=== PATIENT | female | born 1950 | race Caucasian/White ===

== ENCOUNTER → 2017-05-03 | Outpatient (CLI) | payer MEDICARE ==
--- NOTE | 2017-05-03 17:36 | PCVCIMAG ---
APPROVED REPORT Study performed: 05/03/2017 14:01:01 EXAM: Comprehensive 2D, Doppler, and color-flow Echocardiogram Patient Location: Echo lab Status: routine BSA: 1.87 HR: 63 bpmBP: 96/56 mmHg Rhythm: NSR Other Information Study Quality: Adequate Risk Factors: Cardiac Risk Factors: diastolic dysfunction,copd,peripheral edema Indications COPD Peripheral Edema Chest Pain diastolic chf 2D Dimensions LVEF(%): 67.60 (>50%) IVSd: 6.99 (7-11mm)LVOT Diam: 18.52 (18-24mm) LVDd: 42.91 mm PWd: 7.16 (7-11mm)Ascending Ao: 30.18 (22-36mm) LVDs: 26.91 (25-40mm) Left Atrium: 34.96 (27-40mm) Aortic Root: 23.00 mm LV Single Plane 4CH: 66.01 % LV Single Plane 2CH: 70.41 %Deras's LVEF: 68.21 % Biplane EF: 69.0 % Volumes Left Atrial Volume (Systole) Single Plane 4CH: 79.13 mLSingle Plane 2CH: 53.30 mL Biplane LA Volume: 70.00 mLLA ESV Index: 37.00 mL/m2 Aortic Valve AoV Peak Durga.: 1.03 m/s AO Peak Gr.: 4.25 mmHgLVOT Max P.81 mmHg LVOT Max V: 0.84 m/s NOEL Vmax: 2.19 cm2 Mitral Valve E/A Ratio: 1.0 MV Decel. Time: 199.75 ms MV E Max Durga.: 1.28 m/s MV A Durga.: 1.22 m/s MV VTI: 402.86 mm IVRT: 79.58 ms TDI E/Lateral E': 25.60E/Medial E': 25.60 Medial E' Durga.: 0.05 m/s Lateral E' Durga.: 0.05 m/s Pulmonary Valve PV Peak Durga.: 0.71 m/sPV Peak Gr.: 2.01 mmHg Pulmonary Vein P Vein S: 0.48 m/sP Vein A: 0.28 m/s P Vein D: 0.55 m/sP Vein A Dur.: 86.5 msec P Vein S/D Ratio: 0.87 Tricuspid Valve TR Peak Durga.: 2.47 m/s TR Peak Gr.: 24.36 mmHg TV Vmax: 0.62 m/sPA Pressure: 31.00 mmHg Left Ventricle The left ventricle is normal size. There is normal LV segmental wall motion. There is normal left ventricular wall thickness. Left ventricular systolic function is normal. The left ventricular ejection fraction is within the normal range. LVEF is 65-70%. Grade I - abnormal relaxation pattern. Right Ventricle The right ventricle is normal size. The right ventricular systolic function is normal. Atria Left atrium is mildly dilated. The right atrium size is normal. Aortic Valve The aortic valve is normal in structure. No aortic regurgitation is present. There is no aortic valvular stenosis. Mitral Valve The mitral valve chordae are thickened and/or calcified.Mild reductino in movement withoyt stenosis. Moderate mitral regurgitation. No evidence of mitral valve stenosis. Tricuspid Valve The tricuspid valve is normal in structure. Mild tricuspid regurgitation with a PA pressure of 31 mmHg. Pulmonic Valve The pulmonary valve is normal in structure. There is no pulmonic valvular regurgitation. Great Vessels The aortic root is normal in size. IVC is normal in size and collapses with >50% inspiration Pericardium Trace pericardial effusion. <Conclusion> The left ventricle is normal size. LVEF is 65-70%. Grade I - abnormal relaxation pattern. The right ventricle is normal size. Left atrium is mildly dilated. The aortic valve is normal in structure. Moderate mitral regurgitation. Mild tricuspid regurgitation with a PA pressure of 31 mmHg. Trace pericardial effusion.
== END | disposition home or self-care (01) ==
LOC: PCVCIMAG 14:16
PROVIDERS: ATTEND Internal Medicine Cardiovascular Disease
DX: I08.1 Rheumatic disorders of both mitral and tricuspid valves (principal); I87.2 Venous insufficiency (chronic) (peripheral); E78.1 Pure hyperglyceridemia; K21.9 Gastro-esophageal reflux disease without esophagitis; J44.9 Chronic obstructive pulmonary disease, unspecified; I31.3 Pericardial effusion (noninflammatory); I50.31 Acute diastolic (congestive) heart failure; N18.9 Chronic kidney disease, unspecified; M85.80 Other specified disorders of bone density and structure, unspecified site; Z86.73 Personal history of transient ischemic attack (TIA), and cerebral infarction without residual deficits; Z90.49 Acquired absence of other specified parts of digestive tract; Z90.710 Acquired absence of both cervix and uterus; Z79.82 Long term (current) use of aspirin; Z87.891 Personal history of nicotine dependence; Z88.8 Allergy status to other drugs, medicaments and biological substances
CPT/HCPCS: 80061; 93306; G0463

== ENCOUNTER → 2018-01-22 | Outpatient (CLI) | payer MEDICARE | END | disposition home or self-care (01) | LOC: PCVCCLINIC 13:25 | DX: I34.0 Nonrheumatic mitral (valve) insufficiency (principal); E78.00 Pure hypercholesterolemia, unspecified; I87.2 Venous insufficiency (chronic) (peripheral); K21.9 Gastro-esophageal reflux disease without esophagitis; J44.9 Chronic obstructive pulmonary disease, unspecified; N18.9 Chronic kidney disease, unspecified; G47.30 Sleep apnea, unspecified; Z87.891 Personal history of nicotine dependence; Z79.82 Long term (current) use of aspirin; Z79.899 Other long term (current) drug therapy | CPT/HCPCS: 93005; G0463 ==

== ENCOUNTER → 2018-11-06 | Outpatient (CLI) | payer MEDICARE | END | disposition home or self-care (01) | LOC: PCVCCLINIC 14:14 | PROVIDERS: ATTEND Internal Medicine Cardiovascular Disease | DX: I34.0 Nonrheumatic mitral (valve) insufficiency (principal); J44.9 Chronic obstructive pulmonary disease, unspecified; E78.00 Pure hypercholesterolemia, unspecified; I87.2 Venous insufficiency (chronic) (peripheral); I50.33 Acute on chronic diastolic (congestive) heart failure; R42 Dizziness and giddiness; R53.83 Other fatigue; I48.0 Paroxysmal atrial fibrillation; K21.9 Gastro-esophageal reflux disease without esophagitis; N18.9 Chronic kidney disease, unspecified; Z86.718 Personal history of other venous thrombosis and embolism; Z86.711 Personal history of pulmonary embolism; Z79.82 Long term (current) use of aspirin; Z87.891 Personal history of nicotine dependence | CPT/HCPCS: 36415; 80061; 93005; G0463 ==

== ENCOUNTER → 2018-11-13 | Outpatient (CLI) | payer MEDICARE ==
[~2018-11-13] MED LIST: DIAZEPAM 10 MG TABLET. ONE; IOHEXOL 350 MG/ML 100 ML VIAL. ONE; IV NORMAL SALINE 1000ML BAG 1,000 ML ONE; LIDOCAINE 1%/EPI 1:100,000 20 ML VIAL. ONE; MIDAZOLAM HCL/PF 2 MG/2 ML VIAL. ONE; fentaNYL PF VIAL 100 MCG/2 ML VIAL ONE
--- NOTE | 2018-11-18 13:52 | PCVCINTER ---
APPROVED REPORT Study performed: 11/13/2018 09:19:23 Patient Details Patient Status: Out-Patient Room #: 2 The patient is a 68 year-old Female Event Personnel Adolfo Potter MD, Kayce Lopez RT(R)(), Cedric Cordova RT(R), Dayron Wilson RN Risk Factors Dysplipidemia (Type: 1)Obesity, Cerebrovascular Disease, Chronic Lung DiseaseHypercholesterolemiaPhysical Activity, Last Creatanine 1.8Tobacco History (Former) Previous Procedures/Diagnoses Previous CHF, CHF, COPD, Arrhythmias - Supraventricular tachycardias->Persistent AF Procedure Narrative The patient was brought electively to the Cardiac Catheterization Laboratory and was prepped and draped in a sterile manner. The right femoral was infiltrated with 1% Lidocaine subcutaneous anesthesia. A Right Heart Catheterization was performed with a 7 Fr. [place] catheter and pressure were recorded. Cardiac outputs were obtained by the Thermal Dilution method. A 6F sheath was inserted into the right femoral artery. Coronary angiography was performed using coronary diagnostic catheters. The right coronary system was accessed and visualized with a JR4 catheter. The left coronary system was accessed and visualized with a JL4 catheter. The left ventricle was accessed and visualized with a Straight Pigtail catheter. Left ventriculogram was performed in VARGAS projection. Closure device was deployed with a 6 Fr Mynx. Hemostasis was obtained with manual pressure following sheath removal without any complications. The patient tolerated the procedure well and there were no complications associated with the procedure. There was no hematoma. Hemodynamics The right atrial mean pressure is 12 mmHg. The right ventricular pressure is 47/6 mmHg. The pulmonary artery pressure is 45/19 mmHg with a mean of 32 mmHg. The mean pulmonary capillary wedge pressure is 14 mmHg. The aortic pressure is 125/82 mmHg with a mean of 96 mmHg. The left ventricular pressure is 124/8 mmHg with a mean of 21 mmHg. The cardiac output and index were assessed using Thermalthermodilution. The cardiac output using thermo method is 5.16 L/min. The cardiac index using thermo method is 2.8 L/min/m2. Conclusion #1 successful right heart catheterization with cardiac output by thermodilution see above hemodynamics #2 hyperdynamic LV function with mildly severe mitral regurgitation EF 65-70% #3 left main large free of disease giving rise to LAD and circumflex #4 LAD with mild irregularity mid vessel lesion of 30% this extends around the apex mild proximal calcification is noted #5 circumflex OM nondominant with mild disease there is a large ramus intermedius branch which is also widely patent #6 a smaller but anatomically dominant right coronary artery with mild disease #7 bilateral selective renal artery injections revealed mild ostial disease Regulations plan: Patient stable. Would entertain diuresis and afterload reduction for mitral insufficiency. Indication for coronary intervention. Follow post catheter protocol.
== END | disposition home or self-care (01) ==
LOC: PCVCINTER 10:22
PROVIDERS: ATTEND Internal Medicine Cardiovascular Disease
DX: I25.10 Atherosclerotic heart disease of native coronary artery without angina pectoris (principal); I70.1 Atherosclerosis of renal artery; I48.1 Persistent atrial fibrillation; I47.1 Supraventricular tachycardia; I34.0 Nonrheumatic mitral (valve) insufficiency; J44.9 Chronic obstructive pulmonary disease, unspecified; F32.9 Major depressive disorder, single episode, unspecified; K21.9 Gastro-esophageal reflux disease without esophagitis; M85.80 Other specified disorders of bone density and structure, unspecified site; G25.81 Restless legs syndrome; Z86.73 Personal history of transient ischemic attack (TIA), and cerebral infarction without residual deficits; Z90.49 Acquired absence of other specified parts of digestive tract; Z90.710 Acquired absence of both cervix and uterus; Z98.890 Other specified postprocedural states; Z87.891 Personal history of nicotine dependence; Z72.89 Other problems related to lifestyle; Z88.1 Allergy status to other antibiotic agents; Z88.8 Allergy status to other drugs, medicaments and biological substances; Z91.048 Other nonmedicinal substance allergy status; E78.00 Pure hypercholesterolemia, unspecified; I13.0 Hypertensive heart and chronic kidney disease with heart failure and stage 1 through stage 4 chronic kidney disease, or unspecified chronic kidney disease; N18.9 Chronic kidney disease, unspecified; I50.30 Unspecified diastolic (congestive) heart failure; I87.2 Venous insufficiency (chronic) (peripheral); G43.109 Migraine with aura, not intractable, without status migrainosus; G47.30 Sleep apnea, unspecified; G62.9 Polyneuropathy, unspecified; Z79.899 Other long term (current) drug therapy; Z88.5 Allergy status to narcotic agent; Z79.84 Long term (current) use of oral hypoglycemic drugs
CPT/HCPCS: 36252; 93460; 99152; 99153; C1751; C1760; C1769; C1894; J1644; J2250; J3010; J3490; J7030; Q9967

== ENCOUNTER → 2018-12-16 | Outpatient (CLI) | payer MEDICARE | END | disposition home or self-care (01) | LOC: PCVCCLINIC 15:30 | PROVIDERS: ATTEND Internal Medicine Cardiovascular Disease | DX: I34.0 Nonrheumatic mitral (valve) insufficiency (principal); I25.10 Atherosclerotic heart disease of native coronary artery without angina pectoris; J44.9 Chronic obstructive pulmonary disease, unspecified; I13.0 Hypertensive heart and chronic kidney disease with heart failure and stage 1 through stage 4 chronic kidney disease, or unspecified chronic kidney disease; I50.30 Unspecified diastolic (congestive) heart failure; N18.9 Chronic kidney disease, unspecified; E78.00 Pure hypercholesterolemia, unspecified; F17.200 Nicotine dependence, unspecified, uncomplicated; Z88.8 Allergy status to other drugs, medicaments and biological substances | CPT/HCPCS: 93005; G0463 ==

== ENCOUNTER → 2019-04-06 | Outpatient (CLI) | payer MEDICARE | END | disposition home or self-care (01) | LOC: PCVCCLINIC 12:04 | PROVIDERS: ATTEND Internal Medicine Cardiovascular Disease | DX: I25.10 Atherosclerotic heart disease of native coronary artery without angina pectoris (principal); I63.512 Cerebral infarction due to unspecified occlusion or stenosis of left middle cerebral artery; E78.00 Pure hypercholesterolemia, unspecified; J44.9 Chronic obstructive pulmonary disease, unspecified; I67.1 Cerebral aneurysm, nonruptured; N18.9 Chronic kidney disease, unspecified; I34.0 Nonrheumatic mitral (valve) insufficiency; D68.59 Other primary thrombophilia; Z86.79 Personal history of other diseases of the circulatory system; K21.9 Gastro-esophageal reflux disease without esophagitis; Z88.8 Allergy status to other drugs, medicaments and biological substances; Z88.6 Allergy status to analgesic agent; Z88.1 Allergy status to other antibiotic agents | CPT/HCPCS: 36415; 80061; 93005; G0463 ==

== ENCOUNTER → 2019-08-05 | Outpatient (CLI) | payer MEDICARE | END | disposition home or self-care (01) | LOC: PCVCCLINIC 14:00 | PROVIDERS: ATTEND Internal Medicine Cardiovascular Disease | DX: I48.0 Paroxysmal atrial fibrillation (principal); I50.30 Unspecified diastolic (congestive) heart failure; E78.00 Pure hypercholesterolemia, unspecified; J44.9 Chronic obstructive pulmonary disease, unspecified; I34.0 Nonrheumatic mitral (valve) insufficiency; I67.1 Cerebral aneurysm, nonruptured; I87.2 Venous insufficiency (chronic) (peripheral); D50.9 Iron deficiency anemia, unspecified; I25.10 Atherosclerotic heart disease of native coronary artery without angina pectoris; Z86.711 Personal history of pulmonary embolism; Z86.73 Personal history of transient ischemic attack (TIA), and cerebral infarction without residual deficits; Z90.49 Acquired absence of other specified parts of digestive tract; Z90.710 Acquired absence of both cervix and uterus; Z96.651 Presence of right artificial knee joint; Z80.9 Family history of malignant neoplasm, unspecified; Z87.891 Personal history of nicotine dependence; Z88.1 Allergy status to other antibiotic agents; Z88.8 Allergy status to other drugs, medicaments and biological substances; Z91.048 Other nonmedicinal substance allergy status | CPT/HCPCS: 36415; 80061; 93005; G0463 ==